=== PATIENT | male | born 1970 | race Caucasian/White ===

== ENCOUNTER 2017-05-09 23:13 | Emergency (ER) | payer MEDICAID ==
--- NOTE | 2017-05-09 23:18 | EDPHY ---
H & P HPI/ROS: HPI CHIEF COMPLAINT: Alcohol intoxication, I want to detox from alcohol HISTORY OF PRESENT ILLNESS: This patient is a 47-year-old male presents to the emergency room stating that he drinks a large amount of whiskey daily and would like to go to detox. He states his last drink was 3 hr ago. He has no withdrawal symptoms here in emergency room appears well. He would like to go to detox. Past Medical History: Denies significant medical history except for alcoholism , history of kidney disease Past Surgical History: Denies recent surgery Social History: Any daily alcohol, large amount of whiskey. Denies illicit drugs tobacco. Family History: Noncontributory ROS REVIEW OF SYSTEMS: A comprehensive 10 point review of systems is otherwise negative aside from elements mentioned in the history of present illness. Exam Constitutional appears well nontoxic no acute distress, smells of alcohol, triage nursing summary reviewed, vital signs reviewed, awake/alert. Eyes normal conjunctivae and sclera, EOMI, PERRLA. HENT normal inspection, atraumatic, moist mucus membranes, no epistaxis, neck supple/ no meningismus, no raccoon eyes. Respiratory clear to auscultation bilaterally, normal breath sounds, no respiratory distress, no wheezing. Cardiovascular rate normal, regular rhythm, no murmur, no edema, distal pulses normal. Gastrointestinal soft, non-tender, no rebound, no guarding, normal bowel sounds, no distension, no pulsatile mass. Genitourinary no CVA tenderness. Musculoskeletal no midline vertebral tenderness, full range of motion, no calf swelling, no tenderness of extremities, no meningismus, good pulses, neurovascularly intact. Skin pink, warm, & dry, no rash, skin atraumatic. Neurologic awake, alert and oriented x 3, AAOx3, moves all 4 extremities equally, motor intact, sensory intact, CN II-XII intact, normal cerebellar, normal vision, normal speech. Psychiatric normal mood/affect. Heme/Lymph/Immune no lymphadenopathy. Differential Diagnosis: Includes but is not limited to in a particular order acute alcohol intoxication, need for resources for alcohol draw, need for Librium. Medical Decision Making: This patient appears well nontoxic no acute distress, is intoxicated with alcohol and would like to go to detox. I will allow him to go to [facility]. He has no significant withdrawal symptoms at this time. Librium will be provided. Source: Patient Constitutional: Initial Vital Signs Temperature (C) 37 C 05/09/17 23:15 Heart Rate 116 H 05/09/17 23:15 Respiratory Rate 16 05/09/17 23:15 Blood Pressure 110/74 05/09/17 23:15 O2 Sat (%) 92 05/09/17 23:15 O2 Delivery Mode Room Air Allergies/Adverse Reactions: erythromycin base Allergy (Verified 05/09/17 23:22) Home Medications: Medication Instructions Recorded NK [No Known Home Meds] 05/09/17 Departure - Departure Disposition: Home, Routine, Self-Care Clinical Impression: Alcoholic intoxication Qualifiers: Complication of substance-induced condition: uncomplicated Qualified Code(s): F10.920 - Alcohol use, unspecified with intoxication, uncomplicated Condition: Good Instructions: Alcohol Intoxication (ED) Additional Instructions: 1. Return emergency room if you have any worsening symptoms questions or concerns.
[2017-05-10] MEDS ORDERED: CHLORDIAZEPOXIDE 25MG PREPK#6 BTL TAKEHOME ONE (00:18)
[2017-05-10] MEDS ORDERED: chlordiazePOXIDE 25 MG CAP ONE (00:35)
[2017-05-10] MEDS ORDERED: chlordiazePOXIDE 25 MG CAP PO ONE (00:36)
[2017-05-10 00:50] VITALS: BP 95/60; PULSE 100; RESP 18; TEMP 97.9; O2SAT 96
== END 2017-05-10 00:49 | disposition home or self-care (01) ==
DX: F10.920 Alcohol use, unspecified with intoxication, uncomplicated (principal)

== ENCOUNTER 2017-06-24 20:29 | Emergency (ER) | payer MEDICAID ==
[2017-06-24 21:50] LABS: PLATELET COUNT 236 10^3/uL (150-400)
--- NOTE | 2017-06-24 22:16 | EDPHY ---
H & P Smoking Status: Current every day smoker Time Seen by Provider: 06/24/17 21:43 HPI/ROS: CHIEF COMPLAINT: Methamphetamine abuse HISTORY OF PRESENT ILLNESS: 47-year-old male presents to the emergency department stating that he wants to stop using drugs. The patient has been injecting methamphetamines. Last use was 2 days ago. He denies any other substance abuse. He denies chest pain or difficulty breathing. He states that he has some numbness in his left hand over last few days. He denies a known trauma or injury however he has been shooting up in his left wrist. He denies any reported trauma. No neck pain. Numbness in his right upper extremity or in his lower extremities bilaterally. Patient is not suicidal or homicidal. He has been through treatment in the past. REVIEW OF SYSTEMS: Constitutional: No fever, no chills. Eyes: No double or blurry vision. ENT: No sore throat. Respiratory: No cough, no shortness of breath. Cardiac: No chest pain. Gastrointestinal: No abdominal pain, vomiting or diarrhea. Genitourinary: No dysuria. Musculoskeletal: No neck or back pain. Skin: No rashes. Neurological: No headache. (Uzma Sierra) Past Medical/Surgical History: Substance abuse (Uzma Sierra) Social History: Single (Uzma Sierra) Physical Exam: General Appearance: Alert, no distress. Anxious, pacing. Very talkative. Eyes: Pupils equal and round. Extraocular motions are all intact. ENT: Mouth: Mucous membranes moist. Respiratory: No wheezing, rhonchi, or rales, lungs are clear to auscultation. Cardiovascular: Regular rate and rhythm. Gastrointestinal: Abdomen is soft and nontender, no masses, no rebound or guarding, bowel sounds normal. Neurological: Alert and oriented x 3, cranial nerves II through XII grossly intact Skin: Warm and dry, no rashes. Musculoskeletal: Nontender to palpate along the cervical, thoracic or lumbar spine. Neck is supple. Extremities: Full range of motion and no peripheral edema. Patient has decreased sensation to light touch to the palm of the left hand especially to the 2nd and 3rd fingers. He has full range of motion and normal strength in the fingers however. Skin is warm and dry. Normal capillary refill. Strong radial pulse at the left wrist. Psychiatric: Patient is oriented X 3, there is no agitation. (Uzma Sierra) Constitutional: Initial Vital Signs Temperature (C) 36.8 C 06/24/17 20:45 Heart Rate 123 H 06/24/17 20:45 Respiratory Rate 20 06/24/17 20:45 Blood Pressure 133/94 H 06/24/17 20:45 O2 Sat (%) 93 06/24/17 20:45 O2 Delivery Mode Room Air Allergies/Adverse Reactions: erythromycin base Allergy (Verified 06/24/17 20:45) Home Medications: Medication Instructions Recorded NK [No Known Home Meds] 05/09/17 Medical Decision Making ED Course/Re-evaluation: 47-year-old male presents to the emergency department stating that he wants to stop using drugs. He admits to using methamphetamines. He is not suicidal homicidal. I do not think this patient needs to be placed on a hold. He is willing to go [facility]. He does have numbness to light touch in the palm of his left hand over last few days. The patient otherwise has normal neurologic examination. The patient does admit to injecting methamphetamines in the volar aspect of his left wrist prior to the onset of the symptoms. The patient has no signs of a vascular injury. His hand is warm and dry. Normal capillary refill. Strong radial pulse at the left wrist. I recommended that he follow up with orthopedic surgeon or primary care provider. Patient however is not welcome at the addiction recovery Center because of his past previous behavior. The patient will be kept in the emergency department till he is clinically sober and then will be discharged. (Uzma Sierra) 6:00 a.m.- The patient has been stable throughout my shift, sleeping for most of it. Once he is awake and able to walk, he will be discharged to see cannot go to the [facility]. (Jennie Hamm) Care Turn Over: Care will be turned over to Dr. Hamm for disposition and plan. (Uzma Sierra) - Data Points Laboratory Results: Laboratory Results 06/24/17 21:30 06/24/17 21:30 06/24/17 06/24/17 21:30 21:30 WBC 6.71 10^3/uL 10^3/uL (3.80-9.50) RBC 4.68 10^6/uL 10^6/uL (4.40-6.38) Hgb 15.0 g/dL g/dL (13.7-17.5) Hct 43.1 % % (40.0-51.0) MCV 92.1 fL fL (81.5-99.8) MCH 32.1 pg pg (27.9-34.1) MCHC 34.8 g/dL g/dL (32.4-36.7) RDW 13.8 % % (11.5-15.2) Plt Count 236 10^3/uL 10^3/uL (150-400) MPV 9.1 fL fL (8.7-11.7) Neut % (Auto) 37.8 % L % (39.3-74.2) Lymph % (Auto) 49.6 % H % (15.0-45.0) [place] % (Auto) 8.2 % % (4.5-13.0) Eos % (Auto) 3.1 % % (0.6-7.6) Baso % (Auto) 0.9 % % (0.3-1.7) Nucleat RBC Rel Count 0.0 % % (0.0-0.2) Absolute Neuts (auto) 2.53 10^3/uL 10^3/uL (1.70-6.50) Absolute Lymphs (auto) 3.33 10^3/uL H 10^3/uL (1.00-3.00) Absolute Monos (auto) 0.55 10^3/uL 10^3/uL (0.30-0.80) Absolute Eos (auto) 0.21 10^3/uL 10^3/uL (0.03-0.40) Absolute Basos (auto) 0.06 10^3/uL 10^3/uL (0.02-0.10) Absolute Nucleated RBC 0.00 10^3/uL 10^3/uL (0-0.01) Immature Gran % 0.4 % % (0.0-1.1) Immature Gran # 0.03 10^3/uL 10^3/uL (0.00-0.10) Sodium 144 mEq/L mEq/L (135-145) Potassium 4.0 mEq/L mEq/L (3.5-5.2) Chloride 109 mEq/L mEq/L (97-110) Carbon Dioxide 23 mEq/l mEq/l (22-31) Anion Gap 12 mEq/L mEq/L (8-16) BUN 8 mg/dL mg/dL (7-23) Creatinine 0.8 mg/dL mg/dL (0.7-1.3) Estimated GFR > 60 Glucose 93 mg/dL mg/dL (70-100) Calcium 9.3 mg/dL mg/dL (8.5-10.4) Ethyl Alcohol 342 mg/dL H mg/dL (0-10) Departure - Departure Disposition: Home, Routine, Self-Care Clinical Impression: Methamphetamine abuse Alcoholic intoxication Qualifiers: Complication of substance-induced condition: with delirium Qualified Code(s): F10.921 - Alcohol use, unspecified with intoxication delirium Condition: Good Instructions: Methamphetamine Abuse (ED) Additional Instructions: You should follow up with primary care provider orthopedic surgeon regarding the numbness in your left hand. Referrals: [facility] Hours [Outside] - As per Instructions
[2017-06-25 01:34] VITALS: BP 104/67; PULSE 114; RESP 18; TEMP 97.5; O2SAT 92
== END 2017-06-25 08:29 | disposition home or self-care (01) ==
DX: F15.10 Other stimulant abuse, uncomplicated (principal); F10.921 Alcohol use, unspecified with intoxication delirium; F17.200 Nicotine dependence, unspecified, uncomplicated
CPT/HCPCS: G0480